=== PATIENT | male | born 1970 | race Caucasian/White ===

== ENCOUNTER 2018-05-03 18:54 | Emergency (ER) | payer MEDICAID ==
[~2018-05-03] VITALS: Ht 177.8 cm; Wt 90.9 kg
[2018-05-03] MEDS ORDERED: ondansetron 4mg rapidly disintigrating tab PO ONE (19:25)
[2018-05-03 19:41] VITALS: BP 142/73
== END 2018-05-03 19:43 ==
LOC: ER 18:54
DX: F10.129 Alcohol abuse with intoxication, unspecified (principal); F17.200 Nicotine dependence, unspecified, uncomplicated; Y90.9 Presence of alcohol in blood, level not specified
CPT/HCPCS: 99284

== ENCOUNTER 2018-06-29 19:18 | Emergency (ER) | payer MEDICAID ==
[~2018-06-29] VITALS: Ht 170.2 cm; Wt 79.5 kg
[2018-06-29 19:39] VITALS: BP 156/93
[2018-06-29] MEDS ORDERED: CEPH-571 PO (20:56)
== END 2018-06-29 21:05 | disposition home or self-care (01) ==
LOC: ER 19:19
DX: L73.8 Other specified follicular disorders (principal); Z59.0 Homelessness; Z56.0 Unemployment, unspecified; Z88.0 Allergy status to penicillin
CPT/HCPCS: 99283

== ENCOUNTER 2018-09-04 15:07 | Emergency (ER) | payer MEDICAID ==
[~2018-09-04] VITALS: Ht 170.2 cm; Wt 60.0 kg
[~2018-09-04 15:07] MED LIST: CEPH-571 PO
[2018-09-04 15:08] VITALS: BP 142/94
[2018-09-04] MEDS ORDERED: mupirocin 2% ointment 22GM TP STA (16:14)
[2018-09-04] MEDS ORDERED: TRIA15CR61 TOP (16:22)
== END 2018-09-04 16:48 | disposition home or self-care (01) ==
LOC: ER 15:07
DX: S61.411D Laceration without foreign body of right hand, subsequent encounter (principal); L98.8 Other specified disorders of the skin and subcutaneous tissue; I10 Essential (primary) hypertension; F15.90 Other stimulant use, unspecified, uncomplicated; Z59.0 Homelessness; Z56.0 Unemployment, unspecified; Z79.2 Long term (current) use of antibiotics; X58.XXXD Exposure to other specified factors, subsequent encounter
CPT/HCPCS: 99283

== ENCOUNTER 2018-10-12 19:46 | Emergency (ER) | payer MEDICAID ==
[~2018-10-12] VITALS: Ht 170.2 cm; Wt 71.0 kg
[2018-10-12 20:08] VITALS: BP 169/97
[2018-10-12 21:25] LABS: BASOPHILS # (AUTO) 0.1 X10'3 (0-0.2); BASOPHILS % (AUTO) 1.2 % (0-1); EOSINOPHILS # (AUTO) 0.2 X10'3 (0-0.9); EOSINOPHILS % (AUTO) 2.8 % (0-6); HEMATOCRIT 43.2 % (42.0-52.0); HEMOGLOBIN 14.5 g/dl (14.0-17.9); LYMPHOCYTES # (AUTO) 3.2 X10'3 (1.1-4.8); LYMPHOCYTES % (AUTO) 40.7 % (21-51); MEAN CORPUSCULAR HGB CONC 33.6 % (33.0-36.5); MEAN CORPUSCULAR VOLUME 95.3 FL (78-98); MEAN PLATELET VOLUME 8.3 FL (7.4-10.4); MONOCYTES # (AUTO) 0.4 X10'3 (0-0.9); MONOCYTES % (AUTO) 4.7 % (2-12); NEUTROPHILS # (AUTO) 3.9 X10'3 (1.8-7.7); NEUTROPHILS % (AUTO) 50.6 % (42-75); PLATELET COUNT 244 X10'3 (140-440); RED BLOOD COUNT 4.53 X10'6 (4.70-6.10); RED CELL DISTRIBUTION WIDTH 14.4 % (11.5-14.5); WHITE BLOOD COUNT 7.8 X10'3 (4.5-11.0)
[2018-10-12 21:34] LABS: ALANINE AMINOTRANSFERASE 72 U/L (12-78); ALBUMIN 4.2 G/DL (3.4-5.0); ALBUMIN/GLOBULIN RATIO 1.1 (1.1-1.5); ALKALINE PHOSPHATASE 69 IU/L (46-116); ANION GAP 11 (8-16); ASPARTATE AMINO TRANSFERASE 50 U/L (10-37); BLOOD UREA NITROGEN 13 MG/DL (7-18); BUN/CREATININE RATIO 15.7 (5.4-32.0); CALCIUM 8.9 MG/DL (8.5-10.1); CHLORIDE 100 MMOL/L (99-107); CREATININE 0.83 MG/DL (0.60-1.10); GLUCOSE 90 MG/DL (70-104); POTASSIUM 3.8 MMOL/L (3.5-5.1); SODIUM 137 MMOL/L (135-145); TOTAL PROTEIN 8.2 G/DL (6.4-8.2); eGFR > 90 ML/MIN
[2018-10-12 21:43] LABS: ETHANOL < 0.010 GM/DL (0.0-0.010)
[2018-10-12 22:44] LABS: CLARITY,URINE CLEAR (Clear); COLOR,URINE YELLOW (Yellow); GLUCOSE, URINE NEGATIVE (Neg); KETONES,URINE NEGATIVE (Neg); LEUKOCYTE ESTERASE ,URINE NEGATIVE (Neg); NITRITES, URINE NEGATIVE (Neg); OCCULT BLOOD,URINE NEGATIVE (Neg); PH,URINE 5.5 (4.8-8.0); PROTEIN,URINE NEGATIVE (Neg); UROBILINOGEN,URINE 0.2 E.U/dL (0.2-1.0)
[2018-10-12 22:46] LABS: UA COLLECTION TYPE CLN CATCH MIDSTREAM
[2018-10-12] MEDS ORDERED: HYDR28CR14 TOP (22:52)
[2018-10-12 22:54] LABS: URINE AMPHETAMINE SCREEN POSITIVE (Neg); URINE BARBITUATE SCREEN NEGATIVE (Neg); URINE BENZODIAZEPINES SCREEN NEGATIVE (Neg); URINE CANNABINOID SCREEN NEGATIVE (Neg); URINE COCAINE SCREEN NEGATIVE (Neg); URINE METHADONE SCREEN NEGATIVE (Neg); URINE OPIATE SCREEN NEGATIVE (Neg); URINE PHENCYCLIDINE SCREEN NEGATIVE (Neg)
== END 2018-10-12 23:04 | disposition home or self-care (01) ==
LOC: ER 19:47
DX: L23.7 Allergic contact dermatitis due to plants, except food (principal); F31.9 Bipolar disorder, unspecified; R45.851 Suicidal ideations; F15.90 Other stimulant use, unspecified, uncomplicated; Z79.2 Long term (current) use of antibiotics; Z79.899 Other long term (current) drug therapy; Z59.0 Homelessness; Z56.0 Unemployment, unspecified
CPT/HCPCS: 36415; 80053; 80305; 80320; 81003; 84443; 85025; 99284

== ENCOUNTER 2018-11-02 19:19 | Emergency (ER) | payer MEDICAID ==
[~2018-11-02] VITALS: Ht 170.2 cm; Wt 79.5 kg
[~2018-11-02 19:19] MED LIST changes: +HYDR28CR14 TOP
[2018-11-02 21:14] VITALS: BP 148/86
[2018-11-02] MEDS ORDERED: ketorolac tromethamine 15mg/ml inj. IM ONE (21:40)
[2018-11-02] MEDS ORDERED: IBUP-1984 PO (21:41)
--- NOTE | 2018-11-02 21:49 | NUR ---
given toradol shot then discharged.
== END 2018-11-02 22:09 | disposition home or self-care (01) ==
LOC: ER 19:20
DX: S39.012A Strain of muscle, fascia and tendon of lower back, initial encounter (principal); G89.29 Other chronic pain; F15.90 Other stimulant use, unspecified, uncomplicated; Z59.0 Homelessness; Z88.0 Allergy status to penicillin; X58.XXXA Exposure to other specified factors, initial encounter; Y93.89 Activity, other specified; Y99.8 Other external cause status; Y92.89 Other specified places as the place of occurrence of the external cause
CPT/HCPCS: 96372; 99283; J1885

== ENCOUNTER 2019-01-08 07:25 | Emergency (ER) | payer BC, MEDICAID ==
[~2019-01-08] VITALS: Ht 170.2 cm; Wt 82.4 kg
[2019-01-08] MEDS ORDERED: ketorolac trometh inj. 60 MG/2 ML VIAL IM ONE (08:30)
[2019-01-08] MEDS ORDERED: SULF1TAB49 PO (09:00)
[2019-01-08] MEDS ORDERED: NAPR-56 PO (09:00)
[2019-01-08] MEDS ORDERED: MUPI15CR TOP (09:00)
[2019-01-08 09:40] VITALS: BP 135/81
== END 2019-01-08 09:42 | disposition home or self-care (01) ==
LOC: ER 07:26
DX: S61.402A Unspecified open wound of left hand, initial encounter (principal); S61.401A Unspecified open wound of right hand, initial encounter; L08.9 Local infection of the skin and subcutaneous tissue, unspecified; M54.5 Low back pain; F15.90 Other stimulant use, unspecified, uncomplicated; G89.29 Other chronic pain; Z56.0 Unemployment, unspecified; Z59.0 Homelessness; X58.XXXA Exposure to other specified factors, initial encounter; Y93.89 Activity, other specified; Y92.89 Other specified places as the place of occurrence of the external cause; Y99.8 Other external cause status
CPT/HCPCS: 72100; 96372; 99283; J1885

== ENCOUNTER 2019-02-08 15:49 | Emergency (ER) | payer BC ==
[~2019-02-08] VITALS: Ht 170.2 cm; Wt 79.5 kg
[~2019-02-08 15:49] MED LIST changes: +MUPI15CR TOP; +NAPR-56 PO
[2019-02-08 16:02] VITALS: BP 167/106
[2019-02-08] MEDS ORDERED: BACDS PO (16:22)
[2019-02-08] MEDS ORDERED: MUPI22OI30 TOP (16:22)
[2019-02-09] MEDS ORDERED: CEPH-572 PO (21:29)
== END 2019-02-08 16:45 | disposition home or self-care (01) ==
LOC: ER 15:50
DX: L02.511 Cutaneous abscess of right hand (principal); G89.29 Other chronic pain; F15.90 Other stimulant use, unspecified, uncomplicated; Z59.0 Homelessness; Z56.0 Unemployment, unspecified; Z88.0 Allergy status to penicillin; Z79.899 Other long term (current) drug therapy; Z86.14 Personal history of Methicillin resistant Staphylococcus aureus infection
CPT/HCPCS: 99283

== ENCOUNTER 2019-02-09 18:52 | Emergency (ER) | payer BC, MEDICAID ==
[~2019-02-09] VITALS: Ht 170.2 cm; Wt 70.7 kg
[~2019-02-09 18:52] MED LIST changes: +BACDS PO; +MUPI22OI30 TOP; -NAPR-56 PO
[2019-02-09] MEDS ORDERED: TETanus/Pertussis (Acell)/Diphther VAC/PF (Tdap-Adult) 0.5ml syringe IM ONE (20:25)
[2019-02-09] MEDS ORDERED: sulfamethoxazole/trimethoprim DS (800/160mg) tablet PO ONE (20:25)
[2019-02-09] MEDS ORDERED: cephalexin 500mg capsule PO ONE (20:25)
[2019-02-09] MEDS ORDERED: LIDOcaine 1% w/epiNEPHrine 1:200,000 30ml vial IM ONE (20:25)
[2019-02-09] MEDS ORDERED: CEPH-572 PO (21:29)
--- NOTE | 2019-02-09 21:48 | NUR ---
FOOT SOAKED IN WARM WATER AND BETADINE PER PA REQUEST. PA OPENED AND DRAINED COPIUOS PRURLNET MATTER OUT OF ABCESS ON FOOT. PA DRESSED FOOT WOUND WITH NON ADHERENT, GAUZE WRAP AND COBAN: [employer].
[2019-02-09 22:25] VITALS: BP 139/77
== END 2019-02-09 22:32 | disposition home or self-care (01) ==
LOC: ER 18:52
DX: L02.612 Cutaneous abscess of left foot (principal); F15.10 Other stimulant abuse, uncomplicated; G89.29 Other chronic pain; Z98.890 Other specified postprocedural states; Z86.19 Personal history of other infectious and parasitic diseases; Z59.0 Homelessness; Z56.0 Unemployment, unspecified; Z79.2 Long term (current) use of antibiotics; Z79.899 Other long term (current) drug therapy
CPT/HCPCS: 10060; 90471; 90715; 99283; J3490